=== PATIENT | female | born 1970 | race Caucasian/White ===

== ENCOUNTER 2016-08-03 10:32 | Outpatient (CLI) | payer MEDICAID ==
[2016-08-03] VITALS (10 sets, daily range): BP systolic 133–174; BP diastolic 88–99
[~2016-08-03] VITALS: Ht 165.1 cm; Wt 72.1 kg
[~2016-08-03 10:32] MED LIST: CEFDINIR 300MG300 MG PO; CIPRO 500MG TA500 MG PO; HYDROCODONE-APA1 TA1 PO; LORTAB 500 MG-71 TAB PO; METOPROLOL25 MG PO; VENLAFAXINE HCL50 MG PO
--- NOTE | 2016-08-03 11:00 | CONSULT NOTE ---
Pharmacokinetic Consult Date of consult: 08/03/16 Time of consult: 1058 Referring provider: DR. GOODE Reason for consult: VANCOMYCIN DOSING FOR CELLULITIS LLE Allergies: Coded Allergies: Penicillins (07/31/16) Home Medications: Active Scripts CEFDINIR (Cefdinir) 300 MG PO BID #20 CAP Prov: 07/31/16 HYDROCODONE 5MG/APAP 325MG (Hydrocodon-Acetaminophen 5-325) 1 TAB PO Q4HP PRN pain #20 TAB Prov: 07/31/16 Reported Medications Metoprolol Tartrate (Metoprolol) 12.5 MG PO DAILY VENLAFAXINE HCL (Effexor 50MG (GEQ)) 50 MG PO BID Height (feet): 5 Height (inches): 5.00 Medical History: CAD? No Angina: No ME: No Hypertension? Yes Hyperlipidemia? No CHF? No DVT? No PE? No COPD? No Asthma? No Anemia? No GERD? No Gastric ulcers? No GI Bleed? No Hernia? Yes Thyroid Problems? No Hypothyroidism? No CVA? No Seizures? No Diabetes? No Renal Insuffiency? No UTI? No Stones? No BPH? No GB Disease: No Nephritic Syndrome? No Asplenia? No Hepatitis? No Sickle Cell Disease? No Arthritis? No Migraines? No Cataracts? No Glaucoma? No MRSA? No HIV? No TB? No Anxiety? No Depression? No Cancer? Yes Site: SKIN CA LT SHOULDER More? No Labs: 07/31/16 SRCR 0.8 MCG/ML Plan: BASED ON PATIENT FACTORS, RECOMMENDED PATIENT START WITH VANCOMYCIN 1250 MG Q12H WITH FIRST DOSE NOW AND NEXT DOSE AT 2100 TONIGHT. PHARMACY WILL FOLLOW DAILY AND ADJUST APPROPRIATE. ISATU MONTILLA PHARMD at 1100
[2016-08-03 11:49] LABS: HEMOGLOBIN 13.1 g/dL (12.2-16.2); LYMPH # 1.6 K/mm3 (0.7-4.5)
[2016-08-03 11:51] LABS: BUN 10 mg/dL (7-18); GFR (ESTIMATED) 90 ML/MIN (59-)
[2016-08-03 15:00] LABS: AMPHETAMINES/METAMPHETAMINES POSITIVE ng/mL (<1000)
== END 2016-08-03 22:50 | disposition home or self-care (01) ==
LOC: COP 10:32 → LAB 10:32 → COP 22:50
PROVIDERS: Emergency Medicine
DX: L03.116 Cellulitis of left lower limb (principal)
CPT/HCPCS: J3370

== ENCOUNTER → 2017-05-20 | Outpatient (CLI) | payer MEDICAID ==
[2017-05-20 15:24] LABS: AMPHETAMINES/METAMPHETAMINES POSITIVE ng/mL (<1000)
== END ==
LOC: LAB 13:23
PROVIDERS: Emergency Medicine
DX: Z79.899 Other long term (current) drug therapy (principal)

== ENCOUNTER → 2017-07-18 | Outpatient (CLI) | payer MEDICAID ==
[2017-07-18 14:54] LABS: AMPHETAMINES/METAMPHETAMINES POSITIVE ng/mL (<1000)
== END ==
LOC: LAB 13:20
PROVIDERS: Emergency Medicine
DX: Z79.899 Other long term (current) drug therapy (principal)